=== PATIENT | male | born 1940 ===

== ENCOUNTER 2022-11-19 13:20 | Inpatient (IN) | payer OTHER ==
[~2022-11-19] VITALS: Ht 170.2 cm; Wt 65.0 kg
[2022-11-19 17:09] VITALS: BP 129/68; PULSE 74; RESP 16; TEMP 98.4; O2SAT 96
[2022-11-19] MEDS ORDERED: MORPHINE SULFATE INJ 2 MG/ml SYRG IV PRN ×2 (17:15)
[2022-11-19] MEDS ORDERED: ONDANSETRON HCL 4 MG/2 ML VIAL IV PRN (17:15)
[2022-11-19] MEDS ORDERED: HYDROcodone-ACET 5/325MG TAB PO PRN (17:15)
[2022-11-19] MEDS ORDERED: POTASSIUM CHL 20 Meq TABLET PO ONE (17:15)
[2022-11-19] MEDS ORDERED: NITROGLYCERIN 0.4 MG SL TAB SL PRN (17:15)
[2022-11-19] MEDS ORDERED: DEXTROSE (50%) 50ML SYRG IV PRN (17:15)
[2022-11-19] MEDS ORDERED: HYDR25TA87 PO (17:50)
[2022-11-19] MEDS ORDERED: INSU1INJ19 SC (17:55)
[2022-11-19] MEDS ORDERED: OXYC325T14 PO (17:55)
[2022-11-19] MEDS ORDERED: ACET1CAP14 PO (17:55)
[2022-11-19] MEDS: MAGNESIUM SULFATE 1GM/100ML 100 ML IV SCH ×2 (18:00→22:46)
[2022-11-19 18:13] VITALS: RESP 18; O2SAT 94
[2022-11-19 20:00] VITALS: PULSE 80; RESP 18; O2SAT 98
[2022-11-19] MEDS: SODIUM CHLORIDE 0.9% 1,000 ML IV SCH (21:23)
[2022-11-19 22:00] VITALS: BP 145/74; PULSE 80; RESP 18; TEMP 98.9; O2SAT 98
[2022-11-19] MEDS: ACCU-CHEK COMFORT CURVE STRIP VI SCH (22:00)
[2022-11-19] MEDS: PIPERACILLIN-TAZOB 3.375GM 100 ML IV SCH (22:59)
[2022-11-19] MEDS: InsuLIN REG 1unit/0.01ml Soln (100units/ml) SC SCH (23:11)
[2022-11-20] VITALS (7 sets, daily range): BP systolic 127–158; BP diastolic 47–83; PULSE 66–80; RESP 18–21; TEMP 98.5–98.8; O2SAT 95–98
[2022-11-20] MEDS: MAGNESIUM SULFATE 1GM/100ML 100 ML IV SCH ×2 (01:39→02:58)
[2022-11-20] MEDS: SODIUM CHLORIDE 0.9% 1,000 ML IV SCH ×3 (03:15→23:15)
[2022-11-20] MEDS: PIPERACILLIN-TAZOB 3.375GM 100 ML IV SCH ×3 (05:34→23:21)
[2022-11-20] MEDS: ACCU-CHEK COMFORT CURVE STRIP VI SCH ×4 (06:25→21:26)
[2022-11-20] MEDS: InsuLIN REG 1unit/0.01ml Soln (100units/ml) SC SCH ×4 (06:25→21:22)
[2022-11-20 06:34] LABS: Anion Gap 8 (5-15); Carbon Dioxide 22 mmol/L (20-30); Chloride 101 mmol/L (98-107); Sodium 131 mmol/L (136-145)
[2022-11-20 06:35] LABS: Calcium 9.3 mg/dL (8.7-10.4)
[2022-11-20 06:40] LABS: BUN/Creatinine Ratio 8.8 (10.0-20.0); Blood Urea Nitrogen 16 mg/dL (9-23); Glucose 146 mg/dL (74-106)
[2022-11-20 06:41] LABS: Basophils # (auto) 0 10 ^3/uL (0-0.2); Eosinophils # (auto) 0.2 10 ^3/uL (0-0.8); Hemoglobin 10.9 g/dL (13.5-17.5); Lymphocytes # (auto) 1.2 10 ^3/uL (0.4-5.4); Magnesium 2.8 mg/dL (1.6-2.6)
[2022-11-20 06:42] LABS: Phosphorus 3.9 mg/dL (2.4-5.1)
[2022-11-20 06:44] LABS: Basophils % (auto) 0.3 % (0.0-2.0); Hematocrit 32.7 % (41.0-53.0); Lymphocytes % (auto) 10.7 % (10.0-50.0); Mean Corpuscular Hemoglobin 30.6 pg (28.0-32.0); Mean Corpuscular Hgb Conc. 33.2 g/dL (32.0-36.0); Mean Corpuscular Volume 92.2 fL (80.0-100.0); Monocytes # (auto) 1.1 10 ^3/uL (0-1.3); Monocytes % (auto) 10.2 % (0.0-12.0); Neutrophils # (auto) 8.5 10 ^3/uL (1.6-8.6); Neutrophils % (auto) 76.8 % (37.0-80.0); Nucleated Red Blood Cells % 0.1 %; Red Blood Cells 3.55 10^6/uL (4.5-5.90); Red Cell Distribution Width 14.7 % (11.8-14.3); White Blood Cell 11.1 10^3/uL (4.4-10.8)
[2022-11-20 06:47] LABS: INR 1.05 (0.9-1.15); Partial Thromboplastin Time 35.8 SEC (24.5-34.5)
[2022-11-20] MEDS ORDERED: ENOXAPARIN SOD 40 MG/0.4 ML SYRINGE SC SCH (10:00)
[2022-11-20] MEDS: FAMOTIDINE 20 MG TAB PO SCH (10:00)
[2022-11-20 10:31] LABS: Protein, Urine 31.3 mg/dL (0.0-11.9)
[2022-11-20 10:32] LABS: Urine Bacteria FEW /hpf (None Seen); Urine Blood Negative /uL (Negative); Urine Clarity Clear (Clear); Urine Color Colorless (Yellow); Urine Mucus FEW (None Seen); Urine Protein, UAD TRACE (Negative); Urine Specific Gravity 1.014 (1.001-1.035); Urine Urobilinogen Normal (Negative); Urine WBC 43 /hpf (0 - 3)
[2022-11-20 10:34] LABS: Creatinine, Urine 25.69 mg/dL (30.0-125.0); Urine Protein/Creatinine Ratio 1.22
[2022-11-20] MEDS: ENOXAPARIN SOD 30 MG/0.3 ML SYRINGE SC SCH (12:09)
[2022-11-21] VITALS (7 sets, daily range): BP systolic 106–158; BP diastolic 56–61; PULSE 64–71; RESP 18–19; TEMP 97.6–98.8; O2SAT 96–99
[2022-11-21] MEDS: ACETAMINOPHEN 325 MG TAB PO PRN ×2 (02:57→07:51)
[2022-11-21] MEDS: PIPERACILLIN-TAZOB 3.375GM 100 ML IV SCH ×3 (05:56→22:35)
[2022-11-21] MEDS: InsuLIN REG 1unit/0.01ml Soln (100units/ml) SC SCH ×4 (05:56→23:28)
[2022-11-21] MEDS: ACCU-CHEK COMFORT CURVE STRIP VI SCH ×4 (06:38→22:36)
[2022-11-21 06:45] LABS: Basophils # (auto) 0 10 ^3/uL (0-0.2); Basophils % (auto) 0.5 % (0.0-2.0); Eosinophils # (auto) 0.5 10 ^3/uL (0-0.8); Eosinophils % (auto) 5.2 % (0.0-7.0); Hematocrit 30.1 % (41.0-53.0); Lymphocytes # (auto) 1.5 10 ^3/uL (0.4-5.4); Lymphocytes % (auto) 16.9 % (10.0-50.0); Mean Corpuscular Hgb Conc. 33.3 g/dL (32.0-36.0); Mean Corpuscular Volume 93.2 fL (80.0-100.0); Neutrophils % (auto) 66.4 % (37.0-80.0); Nucleated Red Blood Cells % 0.1 %; Red Blood Cells 3.23 10^6/uL (4.5-5.90); Red Cell Distribution Width 14.8 % (11.8-14.3); White Blood Cell 9.1 10^3/uL (4.4-10.8)
[2022-11-21 06:58] LABS: Anion Gap 7 (5-15); Carbon Dioxide 23 mmol/L (20-30); Chloride 103 mmol/L (98-107); Potassium 3.9 mmol/L (3.5-5.1); Sodium 133 mmol/L (136-145)
[2022-11-21 07:04] LABS: Glucose 125 mg/dL (74-106)
[2022-11-21 07:08] LABS: BUN/Creatinine Ratio 8.4 (10.0-20.0); Blood Urea Nitrogen 16 mg/dL (9-23)
[2022-11-21] MEDS: SODIUM CHLORIDE 0.9% 1,000 ML IV SCH (09:15)
[2022-11-21] MEDS: ENOXAPARIN SOD 30 MG/0.3 ML SYRINGE SC SCH (09:46)
[2022-11-21] MEDS: FAMOTIDINE 20 MG TAB PO SCH (09:46)
[2022-11-22] MEDS: SODIUM CHLORIDE 0.9% 1,000 ML IV SCH ×3 (03:09→15:15)
[2022-11-22 05:00] VITALS: BP 138/59; PULSE 70; RESP 18; TEMP 98.1; O2SAT 95
[2022-11-22] MEDS: InsuLIN REG 1unit/0.01ml Soln (100units/ml) SC SCH ×3 (05:38→17:00)
[2022-11-22] MEDS: PIPERACILLIN-TAZOB 3.375GM 100 ML IV SCH ×2 (05:52→15:46)
[2022-11-22 08:15] VITALS: RESP 20
[2022-11-22] MEDS: ACCU-CHEK COMFORT CURVE STRIP VI SCH ×3 (08:16→17:00)
[2022-11-22 08:25] VITALS: BP 152/65; PULSE 63; RESP 20; TEMP 98.2; O2SAT 99
[2022-11-22] MEDS: ENOXAPARIN SOD 30 MG/0.3 ML SYRINGE SC SCH (10:00)
[2022-11-22] MEDS: FAMOTIDINE 20 MG TAB PO SCH (10:00)
[2022-11-22] MEDS ORDERED: IOHEXOL 350 MG/ML 100ML IJ ONE (10:45)
[2022-11-22] MEDS ORDERED: LIDOCAINE 2%HCL (LOCAL ANESTH.) INJ 20ML MDV ONE ×2 (10:45→11:38)
[2022-11-22] MEDS ORDERED: MIDAZOLAM HCL 2MG/2ML 2ml VIAL (1mg/ml) ONE (11:37)
[2022-11-22] MEDS ORDERED: fentaNYL CITRATE 100 MCG/2 ML VL ONE (11:37)
[2022-11-22] MEDS ORDERED: CIPR500T4 PO (14:29)
[2022-11-22 17:22] VITALS: BP 164/72; PULSE 69; RESP 20; TEMP 97.9; O2SAT 96
[2022-11-23 08:06] LABS: PSA Free 34.2 ng/mL
== END 2022-11-22 19:20 | disposition home health service (06) | DRG 699 ==
LOC: UNDOADMIN 16:50 → CENTRAL 16:50
PROVIDERS: ADMIT Hospitalist; ATTEND Hospitalist
PROC: 0T25X0Z Change Drainage Device in Kidney, External Approach (ICD-10-PCS; principal; 2022-11-22)
PROC: BT111ZZ Fluoroscopy of Right Kidney using Low Osmolar Contrast (ICD-10-PCS; 2022-11-22)
DX: T83.512A Infection and inflammatory reaction due to nephrostomy catheter, initial encounter (principal); C34.90 Malignant neoplasm of unspecified part of unspecified bronchus or lung; N17.9 Acute kidney failure, unspecified; N39.0 Urinary tract infection, site not specified; M10.9 Gout, unspecified; N18.32 Chronic kidney disease, stage 3b; D63.1 Anemia in chronic kidney disease; E11.22 Type 2 diabetes mellitus with diabetic chronic kidney disease; I12.9 Hypertensive chronic kidney disease with stage 1 through stage 4 chronic kidney disease, or unspecified chronic kidney disease; E55.9 Vitamin D deficiency, unspecified; E86.0 Dehydration; N13.9 Obstructive and reflux uropathy, unspecified; Z66 Do not resuscitate; B96.20 Unspecified Escherichia coli [E. coli] as the cause of diseases classified elsewhere; I71.40 Abdominal aortic aneurysm, without rupture, unspecified; Y83.3 Surgical operation with formation of external stoma as the cause of abnormal reaction of the patient, or of later complication, without mention of misadventure at the time of the procedure; Y92.89 Other specified places as the place of occurrence of the external cause; Z85.118 Personal history of other malignant neoplasm of bronchus and lung; Z83.3 Family history of diabetes mellitus; Z85.46 Personal history of malignant neoplasm of prostate; Z93.6 Other artificial openings of urinary tract status
CPT/HCPCS: 36415; 50431; 71045; 74425; 76775; 80048; 81001; 82306; 82570; 82962; 83605; 83735; 83970; 84100; 84154; 84156; 84300; 85025; 85610; 85730; 87077; 87081; 87186; 87205; 93005; 97163; 99152; G0378; J1815; J2250; J2543